=== PATIENT | female | born 1970 | race American Indian/Alaskan Native ===

== ENCOUNTER 2017-08-28 17:42 | Emergency (ER) | payer MEDICAID, OTHER ==
[2017-08-28 17:51] VITALS: BP 123/82; PULSE 79; RESP 18; TEMP 98.4; O2SAT 99
--- NOTE | 2017-08-28 18:55 | C.PDOC ---
History Of Present Illness 47 y/o female presents to the ER complaining of sore throat which started in the morning. Patient reports that she has associated neck swelling. Patient states that she did not take any medications. Patient denies having a fever, any difficulty breathing, difficulty swallowing, tongue swelling or sob. Time Seen by Provider: 08/28/17 18:10 Chief Complaint (Nursing): ENT Problem History Per: Patient History/Exam Limitations: None Onset/Duration Of Symptoms: Hrs Current Symptoms Are (Timing): Still Present Past Medical History Reviewed: Historical Data, Nursing Documentation, Vital Signs Vital Signs: Last Vital Signs Temp 98.4 F 08/28/17 17:49 Pulse 79 08/28/17 17:49 Resp 18 08/28/17 17:49 BP 123/82 08/28/17 17:49 Pulse Ox 99 08/28/17 21:14 - Medical History PMH: No Chronic Diseases Surgical History: No Surg Hx Family History: States: No Known Family Hx - Social History Hx Tobacco Use: No Hx Alcohol Use: Yes Hx Substance Use: No - Immunization History Hx Tetanus Toxoid Vaccination: No Hx Influenza Vaccination: No Hx Pneumococcal Vaccination: No Review Of Systems Except As Marked, All Systems Reviewed And Found Negative. Constitutional: Negative for: Fever, Chills ENT: Positive for: Throat Pain. Negative for: Nose Congestion Physical Exam - Physical Exam Appears: Non-toxic, No Acute Distress Skin: Normal Color, Warm Head: Atraumatic, Normacephalic Eye(s): bilateral: Normal Inspection, EOMI Ear(s): Bilateral: Normal Nose: Normal Oral Mucosa: Moist Throat: Normal, No Erythema, No Exudate, Other (uvula midline) Neck: Normal ROM, Supple Lymphatic: Adenopathy (tender left-sided lymphadenopathy) Chest: Symmetrical Cardiovascular: Rhythm Regular Respiratory: Normal Breath Sounds, No Accessory Muscle Use Gastrointestinal/Abdominal: Normal Exam, Soft, No Tenderness Extremity: Normal ROM Neurological/Psych: Oriented x3, Normal Speech, Normal Cognition ED Course And Treatment O2 Sat by Pulse Oximetry: 99 (RA) Pulse Ox Interpretation: Normal Progress Note: Patient given Motrin. Case discussed and pt evaluated by Dr Taylor, agreed upon plan and treatment. Patient instructed to follow up with her primary care doctor in 2-5 days and return to ED if symptoms worsen. Disposition - Disposition Disposition: HOME/ ROUTINE Disposition Time: 18:57 Condition: STABLE Additional Instructions: Follow up with your primary medical doctor or clinic in 2-5 days for further evaluation. Take medications as prescribed. Return to the emergency department at any time if symptoms persist or worsen. Prescriptions: Mag&Al/Simet/Diphen/Lido [First Magic Mouthwash] 5 ml MM Q6 #1 kit Naproxen [Naprosyn] 1 tab PO BID PRN #20 tab PRN Reason: Pain Instructions: Lymphadenopathy (ED) Forms: [employer] (Kiswahili) - Clinical Impression Clinical Impression: Lymphadenopathy - PA / [employer] LECT[employer]ER / Resident Statement MD/DO has reviewed & agrees with the documentation as recorded. - Scribe Statement The provider has reviewed the documentation as recorded by the Sekou Morales Provider Attestation All medical record entries made by the Siribmerrick were at my direction and personally dictated by me. I have reviewed the chart and agree that the record accurately reflects my personal performance of the history, physical exam, medical decision making, and the department course for this patient. I have also personally directed, reviewed, and agree with the discharge instructions and disposition.
== END 2017-08-28 19:14 | disposition home or self-care (01) ==
LOC: C.ER 17:42
DX: R59.1 Generalized enlarged lymph nodes (principal)